=== PATIENT | female | born 1980 | race Hispanic/Latino ===

== ENCOUNTER 2021-04-27 00:06 | Emergency (ER) | payer OTHER ==
[~2021-04-27] VITALS: Ht 144.8 cm; Wt 66.2 kg
[2021-04-27 00:53] LABS: BILIRUBIN,URINE Negative (NEGATIVE); COLOR,URINE Yellow (YELLOW); GLUCOSE, URINE (UA) Negative (NEGATIVE); KETONES,URINE Negative (NEGATIVE); LEUKOCYTE ESTERASE ,URINE Negative (NEGATIVE); NITRATE,URINE Negative (NEGATIVE); OCCULT BLOOD,URINE Negative (NEGATIVE); PH,URINE 6.5 (5.0-8.0); PROTEIN,URINE Negative (NEGATIVE)
[2021-04-27 00:55] LABS: APPEARANCE,URINE CLOUDY (CLEAR)
[2021-04-27 00:58] VITALS: BP 152/75
[2021-04-27 01:00] LABS: BASOPHILS % (AUTO) 0.4 % (0.0-5.0); EOSINOPHILS % (AUTO) 1.2 % (0.0-8.0); HEMATOCRIT 34.8 % (36-48); LYMPHOCYTES % (AUTO) 18.1 % (21.0-51.0); MEAN CORPUSCULAR HEMOGLOBIN 28.5 pg (27.0-33.0); MEAN CORPUSCULAR HGB CONC 33.6 g/dL (32.0-36.0); MEAN CORPUSCULAR VOLUME 84.9 fL (79-99); MONOCYTES % (AUTO) 6.2 % (3.0-13.0); NEUTROPHILS % (AUTO) 73.7 % (40.0-77.0); PLATELET COUNT (AUTO) 265 K/uL (130-400); RED CELL DISTRIBUTION WIDTH 13.3 % (11.0-15.5); WHITE BLOOD COUNT (AUTO) 11.8 K/uL (4.8-10.8)
[2021-04-27] MEDS ORDERED: DiphenhydrAMINE HCL 50 MG/ML VIAL ONE (01:57)
[2021-04-27] MEDS ORDERED: 0.9%NACL 1000ML 1,000 ML IV ONE (01:57)
[2021-04-27 06:35] LABS: AMPHET/METH SCREEN,URINE NEGATIVE (NEGATIVE); BARBITURATE SCREEN, URINE NEGATIVE (NEGATIVE); BENZODIAZEPINES SCREEN,URINE NEGATIVE (NEGATIVE); CANNABINOID SCREEN,URINE NEGATIVE (NEGATIVE); COCAINE SCREEN,URINE NEGATIVE (NEGATIVE); OPIATE SCREEN,URINE NEGATIVE (NEGATIVE); PHENCYCLIDINE SCREEN,URINE NEGATIVE (NEGATIVE)
[2021-04-27 06:36] LABS: ALANINE AMINOTRANSFERASE 14 U/L (12-78); ALBUMIN 3.1 g/dL (3.5-5.0); ALCOHOL, BLOOD < 3 mg/dL (0-10); ASPARTATE AMINOTRANSFERASE 32 U/L (10-37); BILIRUBIN,TOTAL 0.3 mg/dL (0.2-1.0); CARBON DIOXIDE 23 mmol/L (21-32); CREATINE KINASE, TOTAL 101 U/L (21-232); CREATININE 0.6 mg/dL (0.5-1.5); GLOMERULAR FILTR. RATE CALC 118 mL/min (>60); GLUCOSE,RANDOM 88 mg/dL (70-105); POTASSIUM 3.5 mmol/L (3.5-5.1); SALICYLATE 5.2 mg/dL (2.8-20.0); SODIUM SERUM 149 mmol/L (136-145); TOTAL PROTEIN, SERUM 6.9 g/dL (6.0-8.3); UREA NITROGEN, BLOOD 8 mg/dL (7-18)
[2021-04-27 06:43] LABS: CHLORIDE 90 mmol/L (101-111)
[2021-04-27 07:27] LABS: ACETAMINOPHEN < 1 mcg/mL (10-30)
[2021-04-27 07:51] VITALS: BP 132/64
[2021-04-27] MEDS ORDERED: HYDRALAZINE 25MG TABLET ONE (09:44)
[2021-04-27] MEDS ORDERED: HYDROXYZINE 25 MG TABLET PO ONE (10:00)
[2021-04-27 10:55] VITALS: BP 137/70
== END 2021-04-27 16:25 | disposition home or self-care (01) ==
LOC: EDH 00:06
DX: R45.851 Suicidal ideations (principal); R44.0 Auditory hallucinations; R44.1 Visual hallucinations; F41.9 Anxiety disorder, unspecified; F32.9 Major depressive disorder, single episode, unspecified; F43.10 Post-traumatic stress disorder, unspecified; Z90.49 Acquired absence of other specified parts of digestive tract
CPT/HCPCS: 36415; 80053; 80305; 81003; 82550; 84443; 84703; 85025; 93005; 96361; 96374; 99285; G0481; J1200; J7030